=== PATIENT | male | born 1990 | race Hispanic/Latino ===

== ENCOUNTER 2018-09-03 04:03 | Emergency (ER) | payer OTHER ==
[~2018-09-03 04:03] MED LIST: DOXY100C40 PO
[2018-09-03] MEDS ORDERED: HYDROCODONE/ACETAMINOPHEN 10/325 MG TAB ONE (04:19)
[2018-09-03] MEDS ORDERED: ONDANSETRON 4 MG TABLET ONE (04:19)
== END 2018-09-03 05:19 | disposition home or self-care (01) ==
LOC: EDH 04:03
DX: K02.9 Dental caries, unspecified (principal); K08.89 Other specified disorders of teeth and supporting structures; Z90.49 Acquired absence of other specified parts of digestive tract
CPT/HCPCS: 99283; Q0162